=== PATIENT | female | born 1980 | race American Indian/Alaskan Native ===

== ENCOUNTER 2021-02-01 23:27 | Emergency (ER) | payer SELFPAY ==
[2021-02-02 00:22] LABS: Basophils % (Auto) 0.4 % (0.0-1.8); Eosinophils # (Auto) 0.1 K/mm3 (0.0-0.4); Hematocrit 40.9 % (30.3-42.9); Hemoglobin 14.2 gm/dl (10.1-14.3); Lymphocytes # (Auto) 1.5 K/mm3 (1.2-5.4); Lymphocytes % (Auto) 15.3 % (13.4-35.0); Mean Corpuscular HGB Conc 35 % (30-34); Mean Corpuscular Volume 90 fl (79-97); Monocytes # (Auto) 0.5 K/mm3 (0.0-0.8); Monocytes % (Auto) 4.7 % (0.0-7.3); Platelet Count 218 K/mm3 (140-440); Red Blood Count 4.54 M/mm3 (3.65-5.03); Red Cell Distribution Width 14.7 % (13.2-15.2)
[2021-02-02 00:40] LABS: BUN/Creatinine Ratio 13; Blood Urea Nitrogen 10 mg/dL (7-17); Calcium 10.2 mg/dL (8.4-10.2); Hemolysis Index 6
[2021-02-02 00:42] LABS: Bacteria,Urine 1+ /HPF (Negative); Bilirubin,Urine NEG (Negative); Blood,Urine SM (Negative); Color,Urine Yellow (Yellow); Mucus,Urine FEW /HPF; Protein,Urine <15 mg/dL mg/dL (Negative)
[2021-02-02 00:51] LABS: Amphetamine Screen,Urine PRESUMPTIVE NEGATIVE; Benzodiazepines Screen,Urine PRESUMPTIVE NEGATIVE; Cannabinoid Screen,Urine PRESUMPTIVE POSITIVE; Cocaine Screen,Urine PRESUMPTIVE NEGATIVE; Methadone Screen,Urine PRESUMPTIVE NEGATIVE; Opiate Screen,Urine PRESUMPTIVE NEGATIVE
--- NOTE | 2021-02-02 01:07 | Emergency Department Report ---
ED Psych HPI - General Chief Complaint: Psych Stated Complaint: MH Time Seen by Provider: 02/01/21 23:35 Source: patient - History of Present Illness Initial Comments: Patient is 40 years old female with no significant past medical history. Patient presented to the ER via EMS from home for mental health evaluation. Patient stated that she has been depressed for approximately 1 month now and now she is having suicidal ideation. Patient stated that she is depressed because she has been sick for a month now. Patient did not seek any medical treatment according to her report. Patient does not have a specific plan. No auditory or visual hallucination. No homicidal ideation. MD Complaint: suicidal ideation, feels depressed -: days(s) (30) Associated Psychiatric Symptoms: depression, suicidal ideation History of same: No Associated Symptoms: denies other symptoms Treatments Prior to Arrival: none If Self Harm: admits thoughts of - Related Data Allergies Allergy/AdvReac Type Severity Reaction Status Date / Time No Known Allergies Allergy Unverified 02/02/21 00:15 ED Review of Systems ROS: Stated complaint: MH Other details as noted in HPI Comment: All other systems reviewed and negative Constitutional: denies: chills, fever Respiratory: denies: cough, shortness of breath, SOB with exertion Cardiovascular: denies: chest pain, palpitations Gastrointestinal: nausea. denies: abdominal pain, vomiting Musculoskeletal: denies: back pain Neurological: denies: headache, weakness, numbness, paresthesias, confusion Psychiatric: depression, suicidal thoughts. denies: auditory hallucinations, visual hallucinations, homicidal thoughts ED Past Medical Hx - Social History Smoking Status: Current Every Day Smoker Substance Use Type: Marijuana ED Physical Exam - General General appearance: alert, in no apparent distress - Head Head exam: Present: atraumatic, normocephalic, normal inspection - Eye Eye exam: Present: normal appearance, PERRL - ENT ENT exam: Present: normal exam, normal orophraynx, mucous membranes moist - Neck Neck exam: Present: normal inspection, full ROM. Absent: tenderness, meningismus - Respiratory Respiratory exam: Present: normal lung sounds bilaterally - Cardiovascular Cardiovascular Exam: Present: regular rate, normal rhythm, normal heart sounds - GI/Abdominal GI/Abdominal exam: Present: soft, normal bowel sounds. Absent: distended, tenderness, guarding, rebound, rigid, organomegaly, mass, bruit, pulsatile mass, hernia - Extremities Exam Extremities exam: Present: normal inspection, full ROM, normal capillary refill. Absent: tenderness, pedal edema, joint swelling, calf tenderness - Back Exam Back exam: Present: normal inspection, full ROM. Absent: CVA tenderness (R), CVA tenderness (L) - Neurological Exam Neurological exam: Present: alert, oriented X3, CN II-XII intact, normal gait, reflexes normal. Absent: motor sensory deficit - Psychiatric Psychiatric exam: Present: depressed, suicidal ideation. Absent: homicidal ideation - Skin Skin exam: Present: warm, dry, intact, normal color ED Course Vital Signs 02/02/21 02/02/21 02/02/21 00:20 00:23 07:50 Temperature 97.9 F 97.7 F Pulse Rate 80 61 Respiratory 14 18 Rate Blood Pressure 135/93 106/58 [Left] O2 Sat by Pulse 97 100 99 Oximetry 02/02/21 02/02/21 02/02/21 09:00 20:07 22:40 Temperature 98.4 F Pulse Rate 55 L 62 Respiratory 16 Rate Blood Pressure 135/55 126/61 [Left] O2 Sat by Pulse 99 97 Oximetry 02/03/21 02/03/21 02/03/21 01:54 08:01 10:24 Temperature 98.5 F 98.5 F Pulse Rate 74 64 Respiratory 16 20 Rate Blood Pressure 106/54 108/62 [Left] O2 Sat by Pulse 97 100 100 Oximetry ED Medical Decision Making - Lab Data Result diagrams: 02/01/21 23:57 02/01/21 23:57 - Medical Decision Making Patient is 40 years old female with no significant past medical history. Patient presented to the ER via EMS from home for mental health evaluation. Patient stated that she has been depressed for approximately 1 month now and now she is having suicidal ideation. Patient stated that she is depressed because she has been sick for a month now. Patient did not seek any medical treatment according to her report. Patient does not have a specific plan. No auditory or visual hallucination. No homicidal ideation. Patient remained stable in the ER with stable vital sign. Labs reviewed and is unremarkable. Patient is medically cleared to be evaluated by our psychiatric team. Critical care attestation.: If time is entered above; I have spent that time in minutes in the direct care of this critically ill patient, excluding procedure time. ED Disposition Clinical Impression: Suicidal ideation Disposition: [facility] Is pt being admited?: No Condition: Stable Referrals: PRIMARY CARE, [Primary Care Provider] - 3-5 Days
--- NOTE | 2021-02-02 10:14 | Emergency Department Report ---
Blank Doc - Documentation Documentation: Patient presented with depression and suicidal ideation. [facility] We are awaiting psychiatric evaluation and disposition.
--- NOTE | 2021-02-02 10:39 | Consultation ---
History of Present Illness - Reason for Consult Consult date: 02/02/21 Reason for consult: depression - History of Present Psychiatric Illness Ramona Ontiveros is a 40y/f who endorses suicidal thoughts. She endorses SI, feeling stressed and depressed. She denies having a plan. She denies any past psych history or being on any psych meds. The patient says she's only been sleeping on and off. She denies hallucinations. She also denies any illicit drug use, alcohol or nicotine. She is positive for THC. PAST PSYCHIATRIC HISTORY: Diagnoses: Denies Suicide attempts or Self-harm behavior: Denies Prior psychiatric hospitalizations: Denies Substance Abuse history: Denies Previous psychiatric medications tried: Denies Outpatient treatment: Denies PAST MEDICAL HISTORY: None reported or document Family Psychiatric History: None reported or documented SOCIAL HISTORY Marital Status: Living Arrangements: with spouse Employment Status: employed Access to guns/weapons: Denies Education: History of Abuse: Denies Legal History: unknown REVIEW OF SYSTEMS Constitutional: Negative for weight loss ENT: Negative for stridor Respiratory: Negative for cough or hemoptysis All other systems reviewed and are negative MENTAL STATUS EXAMINATION General Appearance and Behavior: Age appropriate, good hygiene, wearing appropriate clothes. calm, cooperative Cooperation: Cooperative Psychomotor Behavior: Psychomotor normal Mood: depressed, stressed Affect and affective range: Congruent with stated mood Thought Process: goal directed Thought Content: depression, SI Speech: normal tone and pace Suicidal Ideation: Yes Homicidal Ideation:Denies Hallucinations: Denies Delusions: None Impulse Control: Unimpaired Insight and Judgment: Limted Memory: Limited Attention: attentive Orientation: a/o x 3 Assessment (1) Major Depressive Disorder Current Visit: Yes Status: Acute Treatment Plan 1013 Zoloft 25mg po dailu Trazodone 50mg po qhs The patient to comply with previously prescribed medications Risks, benefits and alternatives of medications discussed with the patient, questions answered and consent obtained from patient. PSYCHOTHERAPY: Supportive psychotherapy provided MEDICAL: Per primary team DELIRIUM PRECAUTIONS: Please re-orient patient frequently, keep lights on during the day, and minimize benzodiazepines and opiates as these medications could worsen patient's confusion. DELI SLICER: Defer to primary DISPOSITION: Recommend acute inpatient psychiatric hospitalization at this time. FOLLOW-UP: Will follow. Case staffed with Dr. Nuñez Please contact with any questions and/or concerns. Thank you for the consult. Medications and Allergies Allergies Allergy/AdvReac Type Severity Reaction Status Date / Time No Known Allergies Allergy Unverified 02/02/21 00:15 Mental Status Exam - Vital signs Last Vital Signs Temp 97.7 F 02/02/21 07:50 Pulse 61 02/02/21 07:50 Resp 18 02/02/21 07:50 BP 106/58 02/02/21 07:50 Pulse Ox 99 02/02/21 09:00 Results Result Diagrams: 02/01/21 23:57 02/01/21 23:57 Abnormal lab results 02/01/21 02/01/21 02/01/21 Range/Units 23:57 23:57 23:57 MCHC 35 H (30-34) % Seg Neutrophils % 78.6 H (40.0-70.0) % Seg Neutrophils # 7.9 H (1.8-7.7) K/mm3 Salicylates < 0.3 L (2.8-20.0) mg/dL Acetaminophen 5.0 L (10.0-30.0) ug/mL All other labs normal.
[2021-02-02] MEDS: SERTRALINE 25 MG TAB PO SCH (11:15)
[2021-02-02] MEDS ORDERED: traZODone 50 MG TAB PO SCH (22:00)
[2021-02-03 08:02] VITALS: BP 108/62
[2021-02-03] MEDS: SERTRALINE 25 MG TAB PO SCH (09:49)
--- NOTE | 2021-02-03 10:36 | Event Note ---
Date: 02/03/21 awaiting placement no new events
== END 2021-02-03 12:13 ==
LOC: EEVIPCON 23:27 → ED 23:27
DX: R45.851 Suicidal ideations (principal); F17.200 Nicotine dependence, unspecified, uncomplicated; F12.90 Cannabis use, unspecified, uncomplicated; Z20.822 Contact with and (suspected) exposure to COVID-19
CPT/HCPCS: 36415; 80048; 80307; 81001; 84703; 85025; 99285; U0003; 80320; 99284; G0480